=== PATIENT | female | born 1970 | race Hispanic/Latino ===

== ENCOUNTER 2018-05-15 10:05 | Outpatient (CLI) | payer OTHER ==
--- NOTE | 2018-05-15 12:06 | RAD ---
LEFT HIP 2 VIEWS: INDICATION: Disability examination. COMPARISON: None. FINDINGS: There is mild degenerative arthrosis of the left hip. No acute fracture or subluxation is evident. There is mild enthesopathic change off the anterior superior iliac spine of the left ilium. IMPRESSION: Mild degenerative arthrosis of the left hip. POS: [facility]
--- NOTE | 2018-05-15 12:21 | RAD ---
TWO VIEWS LUMBAR SPINE: INDICATION: History of disability exam. COMPARISON: Prior exam dated 03/16/2013. FINDINGS: There is grade II spondylolisthesis of L5 on S1 with bilateral pars defects is relatively stable when accounting for slight differences in technique. Mild degenerative disk disease at L3-4 and L4-5 is stable. No acute fracture is evident. Cholecystectomy clips are seen within the right upper quadran t. IMPRESSION: Stable grade II spondylolisthesis of L5-S1 with moderate to severe degenerative disk disease at L5-S1 . Mild degenerative disk disease is seen at L3-4 and L4-5. POS: [facility]
== END 2018-05-15 10:06 | disposition home or self-care (01) ==
LOC: BICRAD 10:05
PROVIDERS: ATTEND Psychiatry & Neurology Psychiatry
DX: Z02.71 Encounter for disability determination (principal); M43.17 Spondylolisthesis, lumbosacral region; M51.36 Other intervertebral disc degeneration, lumbar region; M51.37 Other intervertebral disc degeneration, lumbosacral region; M16.12 Unilateral primary osteoarthritis, left hip
CPT/HCPCS: 72100